=== PATIENT | male | born 1985 | race African-American/Black ===

== ENCOUNTER 2017-10-08 21:12 | Inpatient (IN) ==
[2017-10-08] MEDS ORDERED: Dextrose 50% in Water 50 ML Vial IV.PUSH PRN ×2 (21:21→23:08)
[2017-10-08] MEDS ORDERED: Sod Chloride 0.9% Inj 1,000 ML IV.SIG ONE (21:21)
--- NOTE | 2017-10-08 21:24 | ED ---
HPI General Chief complaint: Weakness Stated complaint: Hyperglycemia Time Seen by Provider: 10/08/17 21:21 History of Present Illness HPI narrative: 32-year-old male presents to the emergency department by EMS for evaluation of muscle spasms. The patient states that he was working moving heavy furniture all day and when he got back to the lot and was trying to get out of the truck his arms and legs suddenly seized up and he could not move them. States that he called EMS and when they arrived on scene his glucose was noted to be 402. The patient was given 500 cc fluid bolus. He is now complaining of cramping pain in his legs, the arms have improved. He does state over the past week he has noticed increased thirst and increased urination. He states today he drank 5 bottles of water and 4 gatorades. Denies any chest pain, shortness of breath, abdominal pain, nausea, vomiting, diarrhea, headache, dizziness, numbness or tingling, weakness. No other complaints. Related Data Home Medications Medication Instructions Recorded Confirmed No Known Home Medications 10/08/17 10/08/17 Allergies Allergy/AdvReac Type Severity Reaction Status Date / Time No Known Allergies Allergy Verified 10/08/17 21:25 Review of Systems ROS: all other systems reviewed are negative PMFSH Medical History Medical History Patient denies medical problems (Acute) Social History Social History Substance History: No History of Abuse Smoking Status: Current every day smoker Tobacco Type: Cigars How Often Do You Have a Drink Containing Alcohol: Never Recent Travel in [facility] within the Last 8 Weeks: No Recent Out of Country Travel within the Last 8 Weeks: No Exam Narrative Exam Narrative: GENERAL: Well-nourished and well-developed pleasant patient in no acute distress who is nontoxic appearing. SKIN: Warm and dry. HEAD: Normocephalic and atraumatic. EYES: No injection, drainage, or hyphema noted. PERRLA. EOMI. ENT: No nasal drainage noted. Oropharynx is clear. NECK: Supple and the trachea is midline. CARDIOVASCULAR: Regular rate and rhythm. RESPIRATORY: Breath sounds are equal bilaterally with no accessory muscle use, wheezing, rhonchi, or crackles. GASTROINTESTINAL: Abdomen is soft, non-tender, and nondistended. MUSCULOSKELETAL: No obvious deformities, swelling, cyanosis, or ecchymosis is present throughout the upper and lower extremities. Patient has full range of motion without any signs of neurovascular compromise. Distal pulses are 2+ throughout. NEUROLOGICAL: Awake, alert, and oriented. Normal speech and gait. Cranial nerves are grossly intact. Course Initial Documented Vital Signs Pulse Oximetry 98 10/08/17 21:22 Last Documented Vital Signs Temperature 98.4 F 10/08/17 21:25 Pulse Rate 87 10/08/17 21:29 Respiratory Rate 18 10/08/17 21:29 Blood Pressure 143/70 H 10/08/17 21:29 Pulse Oximetry 97 10/08/17 21:29 Medical Decision Making MARTHA Attestation MARTHA supervised visit: Yes Attestation: I, Dr. Jules, have reviewed the advance practice practitioner's documentation and am in agreement, met with the patient face to face, made the diagnosis, and the medical decision making was done by me. *My assessment and Findings: New onset diabetes. Mild rhabdomyolysis with acute kidney injury. She will be admitted under observation for IV fluids and blood sugar control. [facility] Narrative Medical decision making narrative: .32-year-old male presents to the emergency department by EMS for evaluation of acute muscle cramping and hyperglycemia. Patient is afebrile, vital signs are stable. Physical examination is essentially unremarkable. IV access is obtained, labs of been drawn and sent. Patient is placed on cardiac telemetry and pulse oximetry monitoring. Patient was administered 500 cc IV fluid bolus by EMS, another liter of fluid has been ordered. CBC is unremarkable. CMP shows creatinine 1.67, GFR 48, BUN 19. Glucose 361. CPK 810. Urinalysis shows 30 protein and small occult blood with 500 or greater glucose. Patient has new onset diabetes and DEION. Patient is administered regular insulin 4 units IV and another liter of fluids. Patient will be admitted to medicine service. Medical Screen Exam Complete: Yes Emergency Medical Condition: Yes Differential Diagnosis Differential Diagnosis: Dehydration versus electrolyte abnormality versus diabetes versus rhabdomyolysis Lab Data Result diagrams: 10/08/17 21:40 10/08/17 21:40 Lab Results 10/08/17 10/08/17 10/08/17 Range/Units 21:29 21:40 21:40 WBC 9.5 (4.0-11.0) th/mm3 RBC 4.80 (4.50-5.90) mil/mm3 Hgb 15.2 (13.0-17.0) gm/dL Hct 44.0 (39.0-51.0) % MCV 91.6 (80.0-100.0) fL MCH 31.7 (27.0-34.0) pg MCHC 34.6 (32.0-36.0) % RDW 13.0 (11.6-17.2) % Plt Count 292 (150-450) th/mm3 MPV 9.0 (7.0-11.0) fL Neut % (Auto) 52.1 (16.0-70.0) % Lymph % (Auto) 31.1 (9.0-44.0) % [place] % (Auto) 9.6 H (0.0-8.0) % Eos % (Auto) 6.8 H (0.0-4.0) % Baso % (Auto) 0.4 (0.0-2.0) % Neut # (Auto) 4.9 (1.8-7.7) th/mm3 Lymph # (Auto) 3.0 (1.0-4.8) th/mm3 [place] # (Auto) 0.9 (0.0-0.9) th/mm3 Eos # (Auto) 0.6 H (0.0-0.4) th/mm3 Baso # (Auto) 0.0 (0.0-0.2) th/mm3 WBC Differential . Differential Comment Auto diff final Sodium (136-145) meq/L Potassium (3.5-5.1) meq/L Chloride (98-107) meq/L Carbon Dioxide (21.0-32.0) meq/L Anion Gap (5-15) meq/L BUN (7-18) mg/dL Creatinine (0.60-1.30) mg/dL Estimated GFR (>89) mL/min POC Glucose 370 H (68-110) mg/dl Random Glucose (74-106) mg/dL Calcium (8.5-10.1) mg/dL Magnesium 2.3 (1.5-2.5) mg/dL Total Bilirubin (0.2-1.0) mg/dL AST (15-37) U/L ALT (12-78) U/L Alkaline Phosphatase (45-117) U/L Total Creatine Kinase 810 H (39-308) U/L CK-MB (CK-2) 2.6 (0.5-3.6) ng/mL CK-MB (CK-2) % 0.3 (0.0-4.0) % Total Protein (6.4-8.2) g/dL Albumin (3.4-5.0) g/dL Beta-Hydroxybutyric Acd (0.00-0.39) mmol/L Urine Color (Yellw/Straw) Urine Clarity (Clear) Urine pH (5.0-8.5) Ur Specific [place] (1.002-1.035) Urine Protein (Neg-Trace) mg/dL Urine Glucose (UA) (Negative) mg/dL Urine Ketones (Negative) mg/dL Urine Occult Blood (Negative) Urine Nitrate (Negative) Urine Bilirubin (Negative) Urine Urobilinogen (Less than 2) mg/dL Ur Leukocyte Esterase (Negative) Urine RBC (0-3) /hpf Urine WBC (0-5) /hpf Micro UA Comment Ur Microscopic Review Urine Culture Comments 10/08/17 10/08/17 10/08/17 Range/Units 21:40 21:43 22:42 WBC (4.0-11.0) th/mm3 RBC (4.50-5.90) mil/mm3 Hgb (13.0-17.0) gm/dL Hct (39.0-51.0) % MCV (80.0-100.0) fL MCH (27.0-34.0) pg MCHC (32.0-36.0) % RDW (11.6-17.2) % Plt Count (150-450) th/mm3 MPV (7.0-11.0) fL Neut % (Auto) (16.0-70.0) % Lymph % (Auto) (9.0-44.0) % [place] % (Auto) (0.0-8.0) % Eos % (Auto) (0.0-4.0) % Baso % (Auto) (0.0-2.0) % Neut # (Auto) (1.8-7.7) th/mm3 Lymph # (Auto) (1.0-4.8) th/mm3 [place] # (Auto) (0.0-0.9) th/mm3 Eos # (Auto) (0.0-0.4) th/mm3 Baso # (Auto) (0.0-0.2) th/mm3 WBC Differential Differential Comment Sodium 137 (136-145) meq/L Potassium 4.4 (3.5-5.1) meq/L Chloride 99 (98-107) meq/L Carbon Dioxide 23.6 (21.0-32.0) meq/L Anion Gap 14 (5-15) meq/L BUN 19 H (7-18) mg/dL Creatinine 1.67 H (0.60-1.30) mg/dL Estimated GFR 48 L (>89) mL/min POC Glucose 277 H (68-110) mg/dl Random Glucose 361 H (74-106) mg/dL Calcium 9.1 (8.5-10.1) mg/dL Magnesium (1.5-2.5) mg/dL Total Bilirubin 0.3 (0.2-1.0) mg/dL AST 27 (15-37) U/L ALT 72 (12-78) U/L Alkaline Phosphatase 159 H (45-117) U/L Total Creatine Kinase (39-308) U/L CK-MB (CK-2) (0.5-3.6) ng/mL CK-MB (CK-2) % (0.0-4.0) % Total Protein 8.3 H (6.4-8.2) g/dL Albumin 4.2 (3.4-5.0) g/dL Beta-Hydroxybutyric Acd 0.25 (0.00-0.39) mmol/L Urine Color Straw (Yellw/Straw) Urine Clarity Clear (Clear) Urine pH 6.0 (5.0-8.5) Ur Specific [place] 1.028 (1.002-1.035) Urine Protein 30 H (Neg-Trace) mg/dL Urine Glucose (UA) 500 or greater (Negative) mg/dL Urine Ketones Trace (Negative) mg/dL Urine Occult Blood Small H (Negative) Urine Nitrate Negative (Negative) Urine Bilirubin Negative (Negative) Urine Urobilinogen Less than 2 (Less than 2) mg/dL Ur Leukocyte Esterase Negative (Negative) Urine RBC Less than 1 (0-3) /hpf Urine WBC 1 (0-5) /hpf Micro UA Comment Culture not ind Ur Microscopic Review Not Reportable Urine Culture Comments Culture not ind Discharge Plan Discharge Disposition Patient Disposition: 30 Still Patient Discharge Condition Condition: Stable Discharge Details Diagnosis: DEION (acute kidney injury), Diabetes mellitus, new onset Physicians Team ED Provider: Kali Jules ED Midlevel Provider: Violeta Patel Primary Care Provider: Beatriz Funez Rxs /Orders / Referrals /Forms Prescriptions: No Action No Known Home Medications RF: 0 Status ED Status: With Doctor
[2017-10-08 22:09] LABS: Baso % (Auto) 0.4 % (0.0-2.0); Eos # (Auto) 0.6 th/mm3 (0.0-0.4); Eos % (Auto) 6.8 % (0.0-4.0); Hemoglobin 15.2 gm/dL (13.0-17.0); Lymph % (Auto) 31.1 % (9.0-44.0); Mean Corpuscular HGB Conc 34.6 % (32.0-36.0); Mean Corpuscular Hemoglobin 31.7 pg (27.0-34.0); Mean Corpuscular Volume 91.6 fL (80.0-100.0); Mono # (Auto) 0.9 th/mm3 (0.0-0.9); Mono % (Auto) 9.6 % (0.0-8.0); Neut # (Auto) 4.9 th/mm3 (1.8-7.7); Neut % (Auto) 52.1 % (16.0-70.0); Platelet Count 292 th/mm3 (150-450); White Blood Count 9.5 th/mm3 (4.0-11.0)
[2017-10-08 22:09] LABS: Bilirubin,Urine Negative (Negative); Clarity,Urine Clear (Clear); Color,Urine Straw (Yellw/Straw); Glucose,Urine (UA) 500 or Greater mg/dL (Negative); Leukocyte Esterase,Urine Negative (Negative); Nitrite,Urine Negative (Negative); Specific Gravity,Urine 1.028 (1.002-1.035)
[2017-10-08 22:23] LABS: Alanine Aminotransferase 72 U/L (12-78); Albumin 4.2 g/dL (3.4-5.0); Alkaline Phosphatase 159 U/L (45-117); Anion Gap 14 meq/L (5-15); Aspartate Aminotransferase 27 U/L (15-37); Beta Hydroxybutyric Acid 0.25 mmol/L (0.00-0.39); Blood Urea Nitrogen 19 mg/dL (7-18); Calcium 9.1 mg/dL (8.5-10.1); Carbon Dioxide 23.6 meq/L (21.0-32.0); Chloride 99 meq/L (98-107); Glomerular Filtration Rate 48 mL/min (>89); Glucose,Random 361 mg/dL (74-106); Magnesium 2.3 mg/dL (1.5-2.5); Potassium 4.4 meq/L (3.5-5.1); Sodium 137 meq/L (136-145); Total Protein 8.3 g/dL (6.4-8.2)
[2017-10-08] MEDS: Sod Chloride 0.9% Inj 1,000 ML IV.SIG SCH (22:55)
[2017-10-08 23:01] LABS: CKMB Percent 0.3 % (0.0-4.0); Creatine Kinase MB 2.6 ng/mL (0.5-3.6)
[2017-10-08] MEDS ORDERED: Bisacodyl 10 MG Supp RECTAL PRN (23:10)
--- NOTE | 2017-10-08 23:27 | P.HPIM ---
History of Present Illness Primary Care Physician: Beatriz Funez History of Present Illness: 32 y/o male with no medical history presented to the ED with complaints of muscle spasms, polyuria, and polydipsia. Patient states he just feels dehydrated. 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 Prior to arrival patient was found to have a glucose of 402 by evac. Denies any chest pain, sob, nausea, vomiting, dizziness, headaches, fever or chills. Review of Systems All other systems reviewed negative except as stated in HPI PMFSH - History History Provided By: Patient, Literature Teacher / EMT - Medical History Medical History: Medical History (Last Updated 10/08/17 @ 21:28 by Nicola Bahena) Patient denies medical problems - Surgical History Surgical History: Surgical History (Last Updated 10/09/17 @ 00:05 by KRYSTIAN Hancock) H/O eye surgery - Family History Family History: Family History (Last Updated 10/09/17 @ 00:06 by KRYSTIAN Hancock) Father Diabetes - Tobacco History Tobacco Use In Past 30 Days: Yes Smoking Status: Current every day smoker Tobacco Type: Cigars - Alcohol History How Often Do You Have a Drink Containing Alcohol: Never - Substance Use History Substance History: No History of Abuse - Travel History Recent Travel in the [place] Within the Last 8 Weeks: No Recent Travel Out of the Country Within the Last 8 Weeks: No - Immunization History Tetanus Immunization: <5 Years Hx Influenza Vaccine This Season: No Medications and Allergies Active Medications: Active Medications Al Hydroxide/Mg Hydroxide (Milk Of Tru [place]) 30 ml PO Q12H PRN PRN Reason: Mild Constipation Bisacodyl (Dulcolax Supp) 10 mg RECTAL DAILY PRN PRN Reason: SEVERE CONSITIPATION Dextrose (D50w Vial) 50 ml IV.PUSH UNSCH PRN PRN Reason: PER HYPOGLYCEMIA PROTOCOL Glucagon (Glucagon Inj) 1 mg OTHER PRN PRN PRN Reason: for Hypoglycemia Protocol Sodium Chloride (Ns Inj) 1,000 mls @ 0 mls/hr IV.SIG BOLUS LUCAS Last Admin: 10/08/17 22:55 Dose: 1,000 mls/hr Sodium Chloride (Ns Inj) 1,000 mls @ 150 mls/hr IV.CONT .Q6H40M LUCAS Insulin Aspart (Novolog Insulin Correctional Sugar Inj) 0 unit SQ ACHS LUCAS; Protocol Lactulose (Lactulose Liq) 30 ml PO DAILY PRN PRN Reason: SEVERE CONSITIPATION Sennosides (Senokot) 17.2 mg PO Q12H PRN PRN Reason: Moderate Constipation Sodium Chloride (Ns Flush) 2 ml IV.FLUSH PRN PRN PRN Reason: FLUSH AFTER USING IV ACCESS Allergies Allergy/AdvReac Type Severity Reaction Status Date / Time No Known Allergies Allergy Verified 10/08/17 21:25 Home Medications Medication Instructions Recorded Confirmed Type No Known Home Medications 10/08/17 10/08/17 History Exam Vital signs: Vital Signs 10/08/17 21:22 10/08/17 21:25 10/08/17 21:29 Temperature 98.4 F Pulse Rate 89 87 Respiratory Rate 18 18 Blood Pressure 165/80 H 143/70 H Pulse Oximetry 98 98 97 Intake & Output 10/08/17 10/08/17 10/09/17 06:59 18:59 06:59 Intake Total 1000 / 1000 Balance 1000 / 1000 Weight 104.326 kg Intake: IV 1000 / 1000 NS Inj 1,000 ML @ Wide Open IV. 1000 / 1000 SIG BOLUS ONE Rx#:[id number] Narrative: GENERAL: This is a well-nourished, well-developed patient, in no apparent distress. CARDIOVASCULAR: Regular rate and rhythm without murmurs, gallops, or rubs. RESPIRATORY: Clear to auscultation. Breath sounds equal bilaterally. No wheezes , rales, or rhonchi. GASTROINTESTINAL: Abdomen soft, non-tender, nondistended. Normal active bowel sounds MUSCULOSKELETAL: Extremities without clubbing, cyanosis, or edema. NEURO: Alert & Oriented x4 to person, place, time, situation. Moves all ext x4 Results - Labs CBC & Chem 7: 10/08/17 21:40 10/08/17 21:40 Labs: Short CBC 10/08/17 Range/Units 21:40 WBC 9.5 (4.0-11.0) th/mm3 Hgb 15.2 (13.0-17.0) gm/dL Hct 44.0 (39.0-51.0) % Plt Count 292 (150-450) th/mm3 BMP 10/08/17 21:40 Sodium 137 Potassium 4.4 Chloride 99 Carbon Dioxide 23.6 BUN 19 H Creatinine 1.67 H Calcium 9.1 Cardiac Enzymes 10/08/17 Range/Units 21:40 Total Creatine Kinase 810 H (39-308) U/L CK-MB (CK-2) 2.6 (0.5-3.6) ng/mL Liver Function 10/08/17 Range/Units 21:40 Total Bilirubin 0.3 (0.2-1.0) mg/dL AST 27 (15-37) U/L ALT 72 (12-78) U/L Alkaline Phosphatase 159 H (45-117) U/L Albumin 4.2 (3.4-5.0) g/dL Urine 10/08/17 Range/Units 21:43 Urine Color Straw (Yellw/Straw) Urine Clarity Clear (Clear) Urine pH 6.0 (5.0-8.5) Ur Specific [place] 1.028 (1.002-1.035) Urine Protein 30 H (Neg-Trace) mg/dL Urine Glucose (UA) 500 or greater (Negative) mg/dL Caprini VTE Risk Assessment Caprini VTE Risk Assessment: No/Low Risk (score <= 1) Caprini Risk Assessment Model: Point Value = 1 Point Value = 2 Point Value = 3 Point Value = 5 Age 41-60 Minor surgery BMI > 25 kg/m2 Swollen legs Varicose veins or History of unexplained or recurrent spontaneous Oral contraceptives or hormone replacement Sepsis (< 1 month) Serious lung disease, including pneumonia (< 1 month) Abnormal pulmonary function Acute myocardial infarction Congestive heart failure (< 1 month) History of inflammatory bowel disease Medical patient at bed rest Age 61-74 Arthroscopic surgery Major open surgery (> 45 min) Laparoscopic surgery (> 45 min) Malignancy Confined to bed (> 72 hours) Immobilizing plaster cast Central venous access Age >= 75 History of VTE Family history of VTE Factor V Leiden Prothrombin [id number] Lupus anticoagulant Anticardiolipin antibodies Elevated serum homocysteine Heparin-induced thrombocytopenia Other congenital or acquired thrombophilia Stroke (< 1 month) Elective arthroplasty Hip, pelvis, or leg fracture Acute spinal cord injury (< 1 month) Prophylaxis Regimen: Total Risk Factor Score Risk Level Prophylaxis Regimen 0-1 Low Early ambulation 2 Moderate Order ONE of the following: *Sequential Compression Device (SCD) *Heparin 5000 units SQ BID 3-4 Higher Order ONE of the following medications: *Heparin 5000 units SQ TID *Enoxaparin/Lovenox 40 mg SQ daily (WT < 150 kg, CrCl > 30 mL/min) *Enoxaparin/Lovenox 30 mg SQ daily (WT < 150 kg, CrCl > 10-29 mL/min) *Enoxaparin/Lovenox 30 mg SQ BID (WT < 150 kg, CrCl > 30 mL/min) AND/OR *Sequential Compression Device (SCD) 5 or more Highest Order ONE of the following medications: *Heparin 5000 units SQ TID (Preferred with Epidurals) *Enoxaparin/Lovenox 40 mg SQ daily (WT < 150 kg, CrCl > 30 mL/min) *Enoxaparin/Lovenox 30 mg SQ daily (WT < 150 kg, CrCl > 10-29 mL/min) *Enoxaparin/Lovenox 30 mg SQ BID (WT < 150 kg, CrCl > 30 mL/min) AND *Sequential Compression Device (SCD) Assessment and Plan - Plan 32 y/o male with no medical history presented to the ED with complaints of muscle spasms, polyuria, and polydipsia. Patient states he just feels dehydrated. Diabetes, new onset -A1C ordered -Accu checks with SSI -Diabetic diet -Consult simulation educator Mild rhabdomyolysis, cpk 810 -Serial CPK -IVF NS @ 150 ml/hr DEION, creatine 1.67, due to dehydration -Cont IVF -Trend creatine -Avoid nephrotoxins DVT prophylaxis: SCDs Discussed Condition With: Patient and RN
[2017-10-08 23:52] LABS: Amphetamine Screen,Urine Neg (Neg); Barbiturate Screen,Urine Neg (Neg); Cannabinoid Screen,Urine Neg (Neg); Cocaine Screen,Urine Neg (Neg)
[2017-10-08] MEDS: Sod Chloride 0.9% Inj 1,000 ML IV.CONT SCH (23:52)
[2017-10-08 23:53] LABS: Opiate Screen,Urine Neg (Neg)
[2017-10-09] MEDS: Sod Chloride 0.9% Inj 1,000 ML IV.CONT SCH ×2 (06:01→12:51)
[2017-10-09 06:04] LABS: Baso % (Auto) 0.5 % (0.0-2.0); Eos # (Auto) 0.7 th/mm3 (0.0-0.4); Eos % (Auto) 7.1 % (0.0-4.0); Hematocrit 38.1 % (39.0-51.0); Hemoglobin 13.4 gm/dL (13.0-17.0); Lymph # (Auto) 3.9 th/mm3 (1.0-4.8); Lymph % (Auto) 39.9 % (9.0-44.0); Mean Corpuscular HGB Conc 35.1 % (32.0-36.0); Mean Corpuscular Hemoglobin 32.5 pg (27.0-34.0); Mean Corpuscular Volume 92.4 fL (80.0-100.0); Mean Platelet Volume 8.9 fL (7.0-11.0); Mono # (Auto) 0.9 th/mm3 (0.0-0.9); Mono % (Auto) 8.8 % (0.0-8.0); Neut # (Auto) 4.3 th/mm3 (1.8-7.7); Neut % (Auto) 43.7 % (16.0-70.0); Platelet Count 268 th/mm3 (150-450); Red Blood Count 4.12 mil/mm3 (4.50-5.90); Red Cell Distribution Width 13.4 % (11.6-17.2); White Blood Count 9.8 th/mm3 (4.0-11.0)
[2017-10-09 06:47] LABS: Albumin 3.1 g/dL (3.4-5.0); Calcium 7.4 mg/dL (8.5-10.1); Carbon Dioxide 26.6 meq/L (21.0-32.0); Potassium 3.7 meq/L (3.5-5.1); Total Protein 6.4 g/dL (6.4-8.2)
[2017-10-09 07:18] LABS: CKMB Percent 0.4 % (0.0-4.0); Creatine Kinase MB 5.9 ng/mL (0.5-3.6)
[2017-10-09] MEDS: Insulin NovoLOG Aspart Correctional Sugar Inj SQ SCH ×4 (10:27→20:52)
[2017-10-09] MEDS: Sod Chloride 0.9% Inj 1,000 ML IV.SIG SCH (12:49)
[2017-10-09 12:55] LABS: Hemoglobin A1c 11.5 % (4.3-6.0)
--- NOTE | 2017-10-09 15:00 | P.PN ---
Subjective Interval history: Follow-up visit new onset diabetes, rhabdomyolysis. Patient seen and examined today. Family at the bedside, mother, grandmother, . Discussed with patient extensively regarding diabetes and diabetes teaching. Including lifestyle changes and management. Verbalized understanding. Denies pain and discomfort. Denies SOB/ dyspnea. Denies chest pain, palpitations, headaches, dizziness. Denies fevers, chills, n/v/d. Denies hematuria, dysuria. Physical Exam Vital signs: Vital Signs 10/08/17 21:22 10/08/17 21:25 10/08/17 21:29 Temperature 98.4 F Pulse Rate 89 87 Respiratory Rate 18 18 Blood Pressure 165/80 H 143/70 H Pulse Oximetry 98 98 97 10/09/17 00:05 10/09/17 04:06 10/09/17 09:03 Temperature Pulse Rate 76 65 66 Respiratory Rate 18 16 22 Blood Pressure 138/64 134/69 134/76 Pulse Oximetry 97 98 99 10/09/17 12:55 10/09/17 13:45 Temperature 98.2 F 98.1 F Pulse Rate 75 62 Respiratory Rate 17 18 Blood Pressure 134/75 144/76 H Pulse Oximetry 99 93 L Intake & Output 10/08/17 10/09/17 10/09/17 18:59 06:59 18:59 Intake Total 3000 / 3000 1000 / 1000 Balance 3000 / 3000 1000 / 1000 Weight 104.326 kg 103.419 kg Intake: IV 3000 / 3000 1000 / 1000 NS Inj 1,000 ML @ 150 mls/hr IV 1000 / 1000 1000 / 1000 .CONT .Q6H40M [facility] Rx#:[id number] NS Inj 1,000 ML @ Wide Open IV. 1999 / 1999 SIG BOLUS [facility] Rx#:[id number] Other: Weight On Admission 103.419 kg Narrative: GENERAL: This is a well-nourished, well-developed patient, in no apparent distress. SKIN: Warm and dry HEENT: Normocephalic. Pupils equal round and reactive. Ptosis left eye. Nose without bleeding. Airway patent. NECK: Trachea midline. Supple. CARDIOVASCULAR: Regular rate and rhythm without murmurs, gallops, or rubs. RESPIRATORY: Clear to auscultation. Breath sounds equal bilaterally. No wheezes , rales, or rhonchi. GASTROINTESTINAL: Abdomen soft, non-tender, nondistended. Bowel Sounds normoactive x4. MUSCULOSKELETAL: Extremities without clubbing, cyanosis, or edema. NEUROLOGICAL: Awake and alert. Oriented to time, place, person. No focal neuro deficit. Moves all extremities. Normal speech. Results - Labs CBC & Chem 7: 10/09/17 05:49 10/10/17 07:30 Laboratory Results - last 24 hr 10/08/17 10/08/17 10/08/17 21:29 21:40 21:40 WBC 9.5 RBC 4.80 Hgb 15.2 Hct 44.0 MCV 91.6 MCH 31.7 MCHC 34.6 RDW 13.0 Plt Count 292 MPV 9.0 Neut % (Auto) 52.1 Lymph % (Auto) 31.1 [place] % (Auto) 9.6 H Eos % (Auto) 6.8 H Baso % (Auto) 0.4 Neut # (Auto) 4.9 Lymph # (Auto) 3.0 [place] # (Auto) 0.9 Eos # (Auto) 0.6 H Baso # (Auto) 0.0 WBC Differential . Differential Comment Auto diff final Sodium Potassium Chloride Carbon Dioxide Anion Gap BUN Creatinine Estimated GFR POC Glucose 370 H Random Glucose Hemoglobin A1c Calcium Prot Corrected Calcium Magnesium 2.3 Total Bilirubin AST ALT Alkaline Phosphatase Total Creatine Kinase 810 H CK-MB (CK-2) 2.6 CK-MB (CK-2) % 0.3 Total Protein Albumin Beta-Hydroxybutyric Acd Urine Color Urine Clarity Urine pH Ur Specific [place] Urine Protein Urine Glucose (UA) Urine Ketones Urine Occult Blood Urine Nitrate Urine Bilirubin Urine Urobilinogen Ur Leukocyte Esterase Urine RBC Urine WBC Micro UA Comment Ur Microscopic Review Urine Culture Comments Urine Opiates Screen Ur Barbiturates Screen Ur Amphetamines Screen U Benzodiazepines Scrn Urine Cocaine Screen U Cannabinoids Screen 10/08/17 10/08/17 10/08/17 21:40 21:40 21:40 WBC RBC Hgb Hct MCV MCH MCHC RDW Plt Count MPV Neut % (Auto) Lymph % (Auto) [place] % (Auto) Eos % (Auto) Baso % (Auto) Neut # (Auto) Lymph # (Auto) [place] # (Auto) Eos # (Auto) Baso # (Auto) WBC Differential Differential Comment Sodium 137 Potassium 4.4 Chloride 99 Carbon Dioxide 23.6 Anion Gap 14 BUN 19 H Creatinine 1.67 H Estimated GFR 48 L POC Glucose Random Glucose 361 H Hemoglobin A1c 11.5 H Calcium 9.1 Prot Corrected Calcium Magnesium Total Bilirubin 0.3 AST 27 ALT 72 Alkaline Phosphatase 159 H Total Creatine Kinase 792 H CK-MB (CK-2) CK-MB (CK-2) % Total Protein 8.3 H Albumin 4.2 Beta-Hydroxybutyric Acd 0.25 Urine Color Urine Clarity Urine pH Ur Specific [place] Urine Protein Urine Glucose (UA) Urine Ketones Urine Occult Blood Urine Nitrate Urine Bilirubin Urine Urobilinogen Ur Leukocyte Esterase Urine RBC Urine WBC Micro UA Comment Ur Microscopic Review Urine Culture Comments Urine Opiates Screen Ur Barbiturates Screen Ur Amphetamines Screen U Benzodiazepines Scrn Urine Cocaine Screen U Cannabinoids Screen 10/08/17 10/08/17 10/08/17 21:43 21:43 22:42 WBC RBC Hgb Hct MCV MCH MCHC RDW Plt Count MPV Neut % (Auto) Lymph % (Auto) [place] % (Auto) Eos % (Auto) Baso % (Auto) Neut # (Auto) Lymph # (Auto) [place] # (Auto) Eos # (Auto) Baso # (Auto) WBC Differential Differential Comment Sodium Potassium Chloride Carbon Dioxide Anion Gap BUN Creatinine Estimated GFR POC Glucose 277 H Random Glucose Hemoglobin A1c Calcium Prot Corrected Calcium Magnesium Total Bilirubin AST ALT Alkaline Phosphatase Total Creatine Kinase CK-MB (CK-2) CK-MB (CK-2) % Total Protein Albumin Beta-Hydroxybutyric Acd Urine Color Straw Urine Clarity Clear Urine pH 6.0 Ur Specific [place] 1.028 Urine Protein 30 H Urine Glucose (UA) 500 or greater Urine Ketones Trace Urine Occult Blood Small H Urine Nitrate Negative Urine Bilirubin Negative Urine Urobilinogen Less than 2 Ur Leukocyte Esterase Negative Urine RBC Less than 1 Urine WBC 1 Micro UA Comment Culture not ind Ur Microscopic Review Not Reportable Urine Culture Comments Culture not ind Urine Opiates Screen Neg Ur Barbiturates Screen Neg Ur Amphetamines Screen Neg U Benzodiazepines Scrn Neg Urine Cocaine Screen Neg U Cannabinoids Screen Neg 10/09/17 10/09/17 10/09/17 04:00 05:49 05:49 WBC 9.8 RBC 4.12 L Hgb 13.4 Hct 38.1 L MCV 92.4 MCH 32.5 MCHC 35.1 RDW 13.4 Plt Count 268 MPV 8.9 Neut % (Auto) 43.7 Lymph % (Auto) 39.9 [place] % (Auto) 8.8 H Eos % (Auto) 7.1 H Baso % (Auto) 0.5 Neut # (Auto) 4.3 Lymph # (Auto) 3.9 [place] # (Auto) 0.9 Eos # (Auto) 0.7 H Baso # (Auto) 0.0 WBC Differential . Differential Comment Auto diff final Sodium 140 Potassium 3.7 Chloride 105 Carbon Dioxide 26.6 Anion Gap 8 BUN 14 Creatinine 1.27 Estimated GFR 80 L POC Glucose 200 H Random Glucose 232 H D Hemoglobin A1c Calcium 7.4 L* D Prot Corrected Calcium 7.8 L Magnesium Total Bilirubin 0.5 AST 35 ALT 54 Alkaline Phosphatase 124 H Total Creatine Kinase 1346 H CK-MB (CK-2) 5.9 H CK-MB (CK-2) % 0.4 Total Protein 6.4 D Albumin 3.1 L D Beta-Hydroxybutyric Acd Urine Color Urine Clarity Urine pH Ur Specific [place] Urine Protein Urine Glucose (UA) Urine Ketones Urine Occult Blood Urine Nitrate Urine Bilirubin Urine Urobilinogen Ur Leukocyte Esterase Urine RBC Urine WBC Micro UA Comment Ur Microscopic Review Urine Culture Comments Urine Opiates Screen Ur Barbiturates Screen Ur Amphetamines Screen U Benzodiazepines Scrn Urine Cocaine Screen U Cannabinoids Screen 10/09/17 13:30 WBC RBC Hgb Hct MCV MCH MCHC RDW Plt Count MPV Neut % (Auto) Lymph % (Auto) [place] % (Auto) Eos % (Auto) Baso % (Auto) Neut # (Auto) Lymph # (Auto) [place] # (Auto) Eos # (Auto) Baso # (Auto) WBC Differential Differential Comment Sodium Potassium Chloride Carbon Dioxide Anion Gap BUN Creatinine Estimated GFR POC Glucose 186 H Random Glucose Hemoglobin A1c Calcium Prot Corrected Calcium Magnesium Total Bilirubin AST ALT Alkaline Phosphatase Total Creatine Kinase CK-MB (CK-2) CK-MB (CK-2) % Total Protein Albumin Beta-Hydroxybutyric Acd Urine Color Urine Clarity Urine pH Ur Specific [place] Urine Protein Urine Glucose (UA) Urine Ketones Urine Occult Blood Urine Nitrate Urine Bilirubin Urine Urobilinogen Ur Leukocyte Esterase Urine RBC Urine WBC Micro UA Comment Ur Microscopic Review Urine Culture Comments Urine Opiates Screen Ur Barbiturates Screen Ur Amphetamines Screen U Benzodiazepines Scrn Urine Cocaine Screen U Cannabinoids Screen Assessment and Plan - Plan 32 y/o male with no medical history presented to the ED with complaints of muscle spasms, polyuria, and polydipsia. Patient states he just feels dehydrated. Diabetes, new onset -HgA1C 11.5 -Accu checks with SSI, start Levemir 5 units BID -Diabetic diet -Consult gut snatcher -Discussed extensively with patient, family members regarding management of diabetes including medication management, lifestyle changes. Discussed extensively diabetes complications. Verbalized understanding. Rhabdomyolysis, CPK 810 -->792 --> 1346 -IVF NS + Bicarb @ 150 ml/hr -Repeat CPK faby DEION, creatine 1.67, due to dehydration -Cont IVF -Avoid nephrotoxins -Monitor renal indicis DVT prophylaxis: SCDs Code Status: Full Code Discussed Condition With: Patient, family members, nursing Discharge Planning: Plan to DC home when clinically improved, needs to meet with gut snatcher.
--- NOTE | 2017-10-09 16:51 | ECG ---
Date Performed: 10/08/2017 Time Performed: 21:51:40 PTAGE: 32 years EKG: Sinus rhythm MINIMAL VOLTAGE CRITERIA FOR LVH, CONSIDER NORMAL VARIANT ST ELEVATION, PROBABLY EARLY REPOLARIZATIO N CONSIDER ANTEROSEPTAL MYOCARDIAL INFARCTION, AGE INDERTERMINATE BORDERLINE ECG NO PREVIOUS TRACING DOCTOR: Baldomero Romano Interpretating Date/Time 10/09/2017 16:49:56
[2017-10-09] MEDS: Sodium Bicarbonate 8.4% Inj 100 MEQ in Sod Chloride 0.9% Inj 900 ML IV.CONT SCH (17:53)
[2017-10-09] MEDS ORDERED: Insulin Detemir Inj 1,000 UNIT/10 ML Vial SQ SCH (21:00)
[2017-10-10] MEDS: Sodium Bicarbonate 8.4% Inj 100 MEQ in Sod Chloride 0.9% Inj 900 ML IV.CONT SCH ×7 (00:51→23:33)
[2017-10-10] MEDS: Insulin Detemir Inj 1,000 UNIT/10 ML Vial SQ SCH ×2 (09:20→21:23)
[2017-10-10] MEDS: Insulin NovoLOG Aspart Correctional Sugar Inj SQ SCH ×4 (09:23→21:23)
[2017-10-10 09:27] LABS: Albumin 3.1 g/dL (3.4-5.0); Anion Gap 9 meq/L (5-15); Aspartate Aminotransferase 50 U/L (15-37); Blood Urea Nitrogen 14 mg/dL (7-18); Calcium 8.3 mg/dL (8.5-10.1); Carbon Dioxide 26.2 meq/L (21.0-32.0); Chloride 106 meq/L (98-107); Cholesterol 211 mg/dL (120-200); Glomerular Filtration Rate Greater Than 89 mL/min (>89); Glucose,Random 218 mg/dL (74-106); Potassium 4.2 meq/L (3.5-5.1); Sodium 141 meq/L (136-145); Triglycerides 383 mg/dL (42-150)
[2017-10-10 09:40] LABS: Alanine Aminotransferase 62 U/L (12-78); Alkaline Phosphatase 122 U/L (45-117); Chol/HDL Ratio 7.32 Ratio; Creatine Kinase 1398 U/L (39-308); HDL Cholesterol 28.8 mg/dL (40.0-60.0); LDL Cholesterol,Calculated 106 mg/dL (0-99); Total Protein 6.4 g/dL (6.4-8.2)
--- NOTE | 2017-10-10 09:53 | P.PN ---
Subjective Interval history: Follow-up visit new onset diabetes, rhabdomyolysis. Patient seen and examined today. Patient states he is doing well. Denies pain and discomfort. Denies SOB/ dyspnea. Denies chest pain, palpitations, headaches, dizziness. Denies fevers, chills, n/v/d. Denies hematuria, dysuria. Physical Exam Vital signs: Vital Signs 10/09/17 12:55 10/09/17 13:45 10/09/17 16:00 Temperature 98.2 F 98.1 F 98.8 F Pulse Rate 75 62 64 Respiratory Rate 17 18 18 Blood Pressure 134/75 144/76 H 150/67 H Pulse Oximetry 99 93 L 98 10/09/17 20:00 10/09/17 23:31 10/10/17 03:31 Temperature 98.4 F 98.8 F 98.5 F Pulse Rate 62 75 72 Respiratory Rate 16 16 16 Blood Pressure 134/83 154/73 H 138/67 Pulse Oximetry 98 99 99 10/10/17 07:55 Temperature 97.8 F Pulse Rate 62 Respiratory Rate 16 Blood Pressure 182/81 H Pulse Oximetry 98 Intake & Output 10/09/17 10/10/17 10/10/17 18:59 06:59 18:59 Intake Total 1706 / 1706 1999 / 1999 1000 / 1000 Balance 1706 / 1706 1999 / 1999 1000 / 1000 Weight 103.419 kg Intake: IV 1706 / 1706 1999 / 1999 1000 / 1000 NS Inj 1,000 ML @ 150 mls/hr IV 1706 / 1706 .CONT .Q6H40M [facility] Rx#:[id number] Sodium Bicarbonate 8.4% Inj 100 1000 / 1000 1000 / 1000 MEQ In NS Inj 900 ML @ 150 mls /hr IV.CONT .Q6H40M [facility] Rx#: [id number] NS Inj 1,000 ML @ Wide Open IV. 1000 / 1000 SIG BOLUS [facility] Rx#:[id number] Other: # Voids 3 Date of Last Bowel Movement 10/08/17 10/08/17 Weight On Admission 103.419 kg Narrative: GENERAL: This is a well-nourished, well-developed patient, in no apparent distress. SKIN: Warm and dry HEENT: Normocephalic. Pupils equal round and reactive. Ptosis left eye. Nose without bleeding. Airway patent. NECK: Trachea midline. Supple. CARDIOVASCULAR: Regular rate and rhythm without murmurs, gallops, or rubs. RESPIRATORY: Clear to auscultation. Breath sounds equal bilaterally. No wheezes , rales, or rhonchi. GASTROINTESTINAL: Abdomen soft, non-tender, nondistended. Bowel Sounds normoactive x4. MUSCULOSKELETAL: Extremities without clubbing, cyanosis, or edema. NEUROLOGICAL: Awake and alert. Oriented to time, place, person. No focal neuro deficit. Moves all extremities. Normal speech. Results - Labs CBC & Chem 7: 10/09/17 05:49 10/10/17 07:30 Laboratory Results - last 24 hr 10/08/17 10/09/17 10/09/17 21:40 13:30 18:17 Sodium Potassium Chloride Carbon Dioxide Anion Gap BUN Creatinine Estimated GFR POC Glucose 186 H 234 H Random Glucose Hemoglobin A1c 11.5 H Calcium Total Bilirubin AST ALT Alkaline Phosphatase Total Creatine Kinase Total Protein Albumin Triglycerides Cholesterol LDL Cholesterol, Calc HDL Cholesterol Cholesterol/HDL Ratio 10/09/17 10/10/17 10/10/17 20:23 07:30 07:49 Sodium 141 Potassium 4.2 Chloride 106 Carbon Dioxide 26.2 Anion Gap 9 BUN 14 Creatinine 1.08 Estimated GFR Greater than 89 POC Glucose 259 H 216 H Random Glucose 218 H Hemoglobin A1c Calcium 8.3 L D Total Bilirubin 0.3 AST 50 H ALT 62 Alkaline Phosphatase 122 H Total Creatine Kinase 1398 H Total Protein 6.4 Albumin 3.1 L Triglycerides 383 H Cholesterol 211 H LDL Cholesterol, Calc 106 H HDL Cholesterol 28.8 L Cholesterol/HDL Ratio 7.32 Assessment and Plan - Plan 32 y/o male with no medical history presented to the ED with complaints of muscle spasms, polyuria, and polydipsia. Patient states he just feels dehydrated. Diabetes, new onset -HgA1C 11.5 -Accu checks with SSI, Increase Levemir 10 units BID -Diabetic diet -Consult perinatal educator -Discussed extensively with patient, family members regarding management of diabetes including medication management, lifestyle changes. Discussed extensively diabetes complications. Verbalized understanding. Rhabdomyolysis, CPK 810 -->792 --> 1346 --> -IVF NS + Bicarb @ 200 ml/hr -Trend CPK DEION, creatine 1.67, due to dehydration -Cont IVF -Avoid nephrotoxins -Monitor renal indicis -Improved DVT prophylaxis: SCDs Code Status: Full code Discussed Condition With: Patient, nursing Discharge Planning: Plan to DC home when clinically improved, needs to meet with perinatal educator.
[2017-10-10 09:58] LABS: CKMB Percent 0.3 % (0.0-4.0)
[2017-10-10 12:49] LABS: Phosphorus 2.6 mg/dL (2.5-4.9)
[2017-10-10 12:58] LABS: Thyroid Stimulating Hormone 0.845 uIU/mL (0.358-3.740)
[2017-10-11 00:55] VITALS: RESP 16
[2017-10-11] MEDS: Sodium Bicarbonate 8.4% Inj 100 MEQ in Sod Chloride 0.9% Inj 900 ML IV.CONT SCH ×2 (04:30→10:20)
[2017-10-11 06:37] LABS: Anion Gap 8 meq/L (5-15); Blood Urea Nitrogen 13 mg/dL (7-18); Calcium 8.3 mg/dL (8.5-10.1); Carbon Dioxide 31.5 meq/L (21.0-32.0); Chloride 107 meq/L (98-107); Glomerular Filtration Rate Greater Than 89 mL/min (>89); Glucose,Random 148 mg/dL (74-106); Sodium 146 meq/L (136-145)
[2017-10-11 06:39] LABS: Creatine Kinase 757 U/L (39-308)
[2017-10-11 06:57] LABS: CKMB Percent 0.3 % (0.0-4.0); Creatine Kinase MB 2.1 ng/mL (0.5-3.6)
[2017-10-11] MEDS ORDERED: Insulin Detemir Inj 1,000 UNIT/10 ML Vial SQ SCH (09:00)
[2017-10-11] MEDS: Insulin NovoLOG Aspart Correctional Sugar Inj SQ SCH ×2 (09:04→12:13)
--- NOTE | 2017-10-11 09:55 | P.DS ---
Date of admission: 10/09/17 15:12 Primary care physician: Beatriz Funez Attending physician on discharge: Doron Bradley Anticipated date of discharge: 10/11/17 Brief History from admission: 32 y/o male with no medical history presented to the ED with complaints of muscle spasms, polyuria, and polydipsia. Patient states he just feels dehydrated. 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 Prior to arrival patient was found to have a glucose of 402 by evac. Denies any chest pain, sob, nausea, vomiting, dizziness, headaches, fever or chills. Patient update on day of discharge: Follow-up visit new onset diabetes, rhabdomyolysis. Patient seen and examined today. Family at the bedside. Discussed extensively with patient results of labs and follow up appointments including management of diabetes. Verbalized understanding. Family and patient very thankful for the service and care provided to them. Denies pain and discomfort. Denies SOB/ dyspnea. Denies chest pain, palpitations, headaches, dizziness. Denies fevers, chills, n/v/d. Denies hematuria, dysuria. DS: Diagnosis - Discharge Diagnosis (1) Rhabdomyolysis Status: Acute (2) Diabetes mellitus, new onset Status: Acute DS: Medications - Discharge Medications Prescriptions: blood sugar diagnostic [Blood Glucose Test] #20 each blood-glucose meter [Blood Glucose Monitoring] #1 each insulin aspart U-100 [Novolog U-100 Insulin aspart] 0 unit SUB-Q ACHS 30 Days # 1 vial insulin detemir U-100 [Levemir U-100 Insulin] 12 unit SUB-Q BID 30 Days #7.2 ml lisinopril 5 mg PO DAILY #30 tab metformin [Glucophage] 500 mg PO BIDPC #60 tab DS: Summary Hospital Course: 32 y/o male with no medical history presented to the ED with complaints of muscle spasms, polyuria, and polydipsia. Patient states he just feels dehydrated. Patient was found to have new onset diabetes. Hemoglobin A1c 11.5. Patient was provided with insulin. Placed on diabetic diet. Patient was started on Levemir twice daily and also metformin. art educator have spoken with the patient and also with family members and discuss about management. Patient had rhabdomyolysis possibly secondary to metabolic derangement caused by new onset diabetes. He was given IV fluids including IV NS with bicarb. His CPK trended down. Lipid profile shows elevated LDL, elevated triglycerides, elevated cholesterol level. Unable to start patient on a statin medication because of recent rhabdomyolysis. Discussed this extensively with patient. She needs to follow-up with his primary care provider to be able to check his CPK again. Possibly start on statin when it normalizes several weeks from now. When he came in he was in acute kidney injury with creatinine at 1.6 this is slowly improving trended down after IV fluid hydration. Patient has met maximal benefits of hospitalization. Clinically stable for discharge. Follow-up with PCP. - Time Spent with Patient Total time spent providing and/or coordinating discharge services: Less than 30 minutes - Quality: VTE Deep Vein Thrombosis/Pulmonary Embolism Present on Admission: No Exam Vital signs: Vital Signs 10/10/17 12:00 10/10/17 16:00 10/10/17 20:00 Temperature 98.0 F 98.4 F 98.6 F Pulse Rate 61 53 L 54 L Respiratory Rate 16 16 21 Blood Pressure 134/77 151/70 H 171/89 H Pulse Oximetry 98 97 98 10/11/17 00:00 10/11/17 04:00 10/11/17 07:35 Temperature 98.1 F 97.8 F 97.9 F Pulse Rate 58 L 58 L 65 Respiratory Rate 16 16 16 Blood Pressure 157/68 H 140/65 154/73 H Pulse Oximetry 100 97 97 Intake & Output 10/10/17 10/11/17 10/11/17 18:59 06:59 18:59 Intake Total 3000 / 3000 2000 / 2000 Balance 3000 / 3000 1999 / 1999 Intake: IV 3000 / 3000 2000 / 2000 Sodium Bicarbonate 8.4% Inj 100 3000 / 3000 2000 / 2000 MEQ In NS Inj 900 ML @ 200 mls /hr IV.CONT .Q5H [facility] Rx#: [id number] Other: # Voids 3 2 Date of Last Bowel Movement 10/08/17 10/10/17 Narrative: GENERAL: This is a well-nourished, well-developed patient, in no apparent distress. SKIN: Warm and dry HEENT: Normocephalic. Pupils equal round and reactive. Ptosis right eye. Nose without bleeding. Airway patent. NECK: Trachea midline. Supple. CARDIOVASCULAR: Regular rate and rhythm without murmurs, gallops, or rubs. RESPIRATORY: Clear to auscultation. Breath sounds equal bilaterally. No wheezes , rales, or rhonchi. GASTROINTESTINAL: Abdomen soft, non-tender, nondistended. Bowel Sounds normoactive x4. MUSCULOSKELETAL: Extremities without clubbing, cyanosis, or edema. NEUROLOGICAL: Awake and alert. Oriented to time, place, person. No focal neuro deficit. Moves all extremities. Normal speech. Results Procedures completed during hospitalization: None Labs on day of discharge: Labs from last 24 hours 10/11/17 10/11/17 10/10/17 07:49 05:15 21:02 Sodium 146 H Potassium 4.0 Chloride 107 Carbon Dioxide 31.5 Anion Gap 8 BUN 13 Creatinine 1.11 Estimated GFR Greater than 89 POC Glucose 171 H 297 H Random Glucose 148 H Calcium 8.3 L Phosphorus Total Creatine Kinase 757 H CK-MB (CK-2) 2.1 CK-MB (CK-2) % 0.3 TSH 10/10/17 10/10/17 10/10/17 17:20 13:28 07:30 Sodium Potassium Chloride Carbon Dioxide Anion Gap BUN Creatinine Estimated GFR POC Glucose 278 H 197 H Random Glucose Calcium Phosphorus 2.6 Total Creatine Kinase CK-MB (CK-2) CK-MB (CK-2) % TSH 0.845 10/10/17 07:30 Sodium Potassium Chloride Carbon Dioxide Anion Gap BUN Creatinine Estimated GFR POC Glucose Random Glucose Calcium Phosphorus Total Creatine Kinase CK-MB (CK-2) 4.0 H CK-MB (CK-2) % 0.3 TSH Discharge Plan - Discharge Disposition Patient Disposition: 01 Discharge Home - Discharge Condition Condition: Stable - Discharge Order Discharge Orders: Discharge Order (Routine); Ordered 10/11/17 Ordered By: Ale Harden - Physicians Team Primary Care Provider: Beatriz Funez Attending Provider: Doron Bradley
[2017-10-11] MEDS ORDERED: Lisinopril 5 MG Tablet PO SCH (10:00)
[2017-10-11 11:42] VITALS: BP 152/81; PULSE 60; TEMP 98.4; O2SAT 98
== END 2017-10-11 13:30 | disposition home or self-care (01) ==
LOC: NEDA 21:12 → NEPE 21:12 → NEDH 10-09 05:53 → NEPFCDU 10-09 13:07 → NEPGCP 10-10 14:32
PROVIDERS: ADMIT Hospitalist; ATTEND Hospitalist